=== PATIENT | female | born 1945 | race Caucasian/White ===

== ENCOUNTER 2016-10-18 15:47 | Observation (INO) | payer MEDICARE ==
[~2016-10-18] VITALS: Ht 167.6 cm; Wt 72.1 kg
[2016-10-18 15:49] VITALS: BP 221/91; PULSE 89; RESP 15; TEMP 98.1; O2SAT 99
--- NOTE | 2016-10-18 15:53 | PD ---
Physical Exam Time Seen by Provider: 15:51 Narrative 70yo F c/o chest pain radiating to neck and SOB starting 1.5hours ago. + cardiac hx. + fatigue. Patient seen in triage. VS reviewed. Patient awaiting bed placement. Data Data Last Documented VS Vital Signs Date Time Temp Pulse Resp B/P (MAP) Pulse Ox O2 Delivery O2 Flow Rate FiO2 10/18/16 15:49 98.1 89 15 221/91 (134) 99 MDM Supervised Visit with ZACK: Shirley Lee Oct 18, 2016 15:53
[2016-10-18] MEDS ORDERED: NITROGLYCERIN 2% OINT 1 GM PACKET TOP ONE (16:00)
[2016-10-18] MEDS ORDERED: ASPIRIN 81 MG CHEW TAB PO ONE (16:00)
[2016-10-18] MEDS ORDERED: SODIUM CHLORIDE 0.9% FLUSH 10 ML FLUSH IVF PRN (16:00)
[2016-10-18] MEDS ORDERED: MORPHINE SULFATE 4 MG/ML INJ IV PUSH ONE (16:00)
--- NOTE | 2016-10-18 16:07 | PD ---
HPI . Chest pain Chief Complaint: Cardiac Complaint Time Seen by Provider: 15:56 Travel History International Travel<30 days: No Contact w/Intl Traveler<30days: No Traveled to known affect area: No History of Present Illness HPI This patient presents with chief complaint of the acute onset of chest pain, shortness of breath and nausea with it about an hour and half prior to arrival. She is also complaining with a knifelike pain in her back. She has used nitroglycerin 3 with no relief. She states that she has been feeling fatigued for the last couple of days and has had a few "episodes." The patient reports a significant cardiac history. She has had numerous previous stents. She states that she has not had CABG. Symptoms are improved with nitroglycerin and morphine. CBC & BMP Diagram 10/18/16 16:15 Calcium Level 9.5, Magnesium Level 1.9 Initial cardiac enzymes are negative. This patient [facility] evaluation. PFSH Past Medical History Cardiovascular Problems: Yes Diabetes: Yes Social History Tobacco Use: No Allergies-Medications (Allergen,Severity, Reaction): Coded Allergies: Sulfa (Sulfonamide Antibiotics) (Verified Allergy, Unknown, 10/18/16) Review of Systems Except as stated in HPI: all other systems reviewed are Neg Cardiovascular: Positive: Chest Pain or Discomfort Respiratory: Positive: Shortness of Breath Gastrointestinal: Positive: Nausea Musculoskeletal: Positive: Pain (back pain) Physical Exam Narrative GENERAL: The patient is taking very deep respirations. SKIN: Warm and dry. HEAD: Atraumatic. Normocephalic. EYES: Pupils equal and round. Extraocular movements are intact. ENT: No nasal bleeding or discharge. Mucous membranes pink and moist. NECK: Trachea midline. Neck is supple. CARDIOVASCULAR: Regular rate and rhythm. Soft systolic ejection murmur. RESPIRATORY: No accessory muscle use. Lungs are clear with full air movement throughout. GASTROINTESTINAL: Abdomen soft, non-tender, nondistended. MUSCULOSKELETAL: No obvious deformities. No edema. NEUROLOGICAL: Awake and alert. No obvious cranial nerve deficits. Motor grossly within normal limits. Normal speech. PSYCHIATRIC: Appropriate mood and affect; insight and judgment normal. Data Data Last Documented VS Vital Signs Date Time Temp Pulse Resp B/P (MAP) Pulse Ox O2 Delivery O2 Flow Rate FiO2 10/18/16 16:14 100 Room Air 10/18/16 16:14 56 16 2.00 10/18/16 15:49 98.1 Orders Orders Electrocardiogram (10/18/16 15:56) Basic Metabolic Panel (Bmp) (10/18/16 15:56) Ckmb (Isoenzyme) Profile (10/18/16 15:56) Complete Blood Count With Diff (10/18/16 15:56) Magnesium (Mg) (10/18/16 15:56) Prothrombin Time / Inr (Pt) (10/18/16 15:56) Act Partial Throm Time (Ptt) (10/18/16 15:56) Troponin I (10/18/16 15:56) Chest, Single Ap (10/18/16 15:56) Ecg Monitoring (10/18/16 15:56) Iv Access Insert/Monitor (10/18/16 15:56) Oximetry (10/18/16 15:56) Aspirin Chew (Aspirin Chew) (10/18/16 16:00) Morphine Inj (Morphine Inj) (10/18/16 16:00) Nitroglycerin 2% Oint (Nitroglycerin 2% (10/18/16 16:00) Sodium Chloride 0.9% Flush (Ns Flush) (10/18/16 16:00) Labs Laboratory Tests Test 10/18/16 16:15 White Blood Count 6.7 TH/MM3 Red Blood Count 4.69 MIL/MM3 Hemoglobin 13.9 GM/DL Hematocrit 42.2 % Mean Corpuscular Volume 90.0 FL Mean Corpuscular Hemoglobin 29.7 PG Mean Corpuscular Hemoglobin Concent 33.0 % Red Cell Distribution Width 13.2 % Platelet Count 238 TH/MM3 Mean Platelet Volume 8.6 FL Neutrophils (%) (Auto) 46.5 % Lymphocytes (%) (Auto) 42.1 % Monocytes (%) (Auto) 9.4 % Eosinophils (%) (Auto) 1.6 % Basophils (%) (Auto) 0.4 % Neutrophils # (Auto) 3.1 TH/MM3 Lymphocytes # (Auto) 2.8 TH/MM3 Monocytes # (Auto) 0.6 TH/MM3 Eosinophils # (Auto) 0.1 TH/MM3 Basophils # (Auto) 0.0 TH/MM3 CBC Comment DIFF FINAL Differential Comment Prothrombin Time 10.2 SEC Prothromb Time International Ratio 0.9 RATIO Activated Partial Thromboplast Time 24.0 SEC Blood Urea Nitrogen 18 MG/DL Creatinine 1.25 MG/DL Random Glucose 109 MG/DL Calcium Level 9.5 MG/DL Magnesium Level 1.9 MG/DL Sodium Level 136 MEQ/L Potassium Level 3.8 MEQ/L Chloride Level 102 MEQ/L Carbon Dioxide Level 29.6 MEQ/L Anion Gap 4 MEQ/L Estimat Glomerular Filtration Rate 42 ML/MIN Total Creatine Kinase 95 U/L Troponin I LESS THAN 0.02 NG/ML MDM Medical Decision Making Medical Screen Exam Complete: Yes Emergency Medical Condition: Yes Medical Record Reviewed: Yes (this patient has no old records here.) Interpretation(s) EKG shows a normal sinus rhythm with no acute ST segment elevation or depression. V5 is not adequately evaluated on this EKG. Differential Diagnosis Differential diagnosis of chest pain includes but is not limited to musculoskeletal pain, pulmonary embolism, acute coronary syndrome, pneumonia, pleurisy Narrative Course This patient presents with chest pain, shortness of breath and nausea. Her pain has been unrelieved by nitroglycerin 3. Cardiac workup has been initiated. Diagnosis Primary Impression: Chest pain Qualified Codes: R07.9 - Chest pain, unspecified Admitting Information Admitting Physician Requests: Observation Condition: Stable Mariel Bond MD Oct 18, 2016 16:07
[2016-10-18 16:14] VITALS: PULSE 56; RESP 16; O2SAT 100
--- NOTE | 2016-10-18 16:22 | RADRPT ---
EXAM DATE/TIME: 10/18/2016 16:13 [facility] COMPARISON: No previous studies available for comparison. INDICATIONS : Chest pain. MEDICAL HISTORY : None. SURGICAL HISTORY : None. ENCOUNTER: Initial ACUITY: 1 day PAIN SCORE: 0/10 LOCATION: Bilateral chest FINDINGS: A single view of the chest demonstrates the lungs to be symmetrically aerated without evidence of mas s, infiltrate or effusion. The cardiomediastinal contours are unremarkable with calcification in the aortic knob.. Osseous structures are intact with anterior cervical fusion plate in place and a pin in the left humeral head suggesting prior rotator cuff tear CONCLUSION: No acute disease. Alen Merritt MD on October 18, 2016 at 16:20 Board Certified Radiologist. This report was verified electronically.
[2016-10-18 16:38] LABS: AUTOMATED NEUTROPHIL # 3.1 TH/MM3 (1.8-7.7); BASOPHIL % 0.4 % (0.0-2.0); EOSINOPHIL # 0.1 TH/MM3 (0-0.4); EOSINOPHIL % 1.6 % (0.0-4.0); HEMATOCRIT 42.2 % (35.0-46.0); HEMO FLAGS DIFF FINAL; LYMPH % 42.1 % (9.0-44.0); LYMPHOCYTE # 2.8 TH/MM3 (1.0-4.8); MEAN CORPUSCULAR HEMOGLOBIN 29.7 PG (27.0-34.0); MONO % 9.4 % (0.0-8.0); NEUT % 46.5 % (16.0-70.0); PLATELET COUNT 238 TH/MM3 (150-450); RED BLOOD COUNT 4.69 MIL/MM3 (4.00-5.30); RED CELL DISTRIBUTION WIDTH 13.2 % (11.6-17.2); WHITE BLOOD COUNT 6.7 TH/MM3 (4.0-11.0)
[2016-10-18 17:05] LABS: ANION GAP 4 MEQ/L (5-15); BICARBONATE 29.6 MEQ/L (21.0-32.0); BLOOD UREA NITROGEN 18 MG/DL (7-18); CHLORIDE 102 MEQ/L (98-107); GLOMERULAR FILTRATION RATE 42 ML/MIN (>89); MAGNESIUM 1.9 MG/DL (1.5-2.5); POTASSIUM 3.8 MEQ/L (3.5-5.1); SODIUM (NA) 136 MEQ/L (136-145)
[2016-10-18 17:10] LABS: INTERNATIONAL NORMALIZED RATIO 0.9 RATIO; PROTHROMBIN TIME - PATIENT 10.2 SEC (9.8-11.6)
[2016-10-18 17:14] LABS: CREATINE KINASE 95 U/L (26-192)
[2016-10-18] MEDS ORDERED: ONDANSETRON HCL 4 MG/2 ML VIAL IV PRN (17:45)
[2016-10-18] MEDS: NITROGLYCERIN 2% OINT 1 GM PACKET TOP SCH (18:00)
[2016-10-18 18:05] VITALS: BP 139/65; PULSE 54; RESP 16; RESP 6; O2SAT 95
[2016-10-18] MEDS ORDERED: CENTCHW4 PO (18:38)
[2016-10-18] MEDS ORDERED: CARV3.125 PO (18:38)
[2016-10-18] MEDS ORDERED: BUPR150T5 PO (18:38)
[2016-10-18] MEDS ORDERED: ASPI1TAB91 PO (18:38)
[2016-10-18] MEDS ORDERED: HUMALOG INSULIN PUMP (18:38)
[2016-10-18] MEDS ORDERED: FOLI400T PO (18:38)
[2016-10-18] MEDS ORDERED: RAMI5CAP PO (18:38)
[2016-10-18] MEDS ORDERED: PLAV75TA29 PO (18:38)
[2016-10-18] MEDS ORDERED: LIPI40TA PO (18:38)
[2016-10-18] MEDS ORDERED: NITR0.4S SL (18:38)
[2016-10-18 19:01] VITALS: BP 145/65; PULSE 53; RESP 16; O2SAT 100
[2016-10-18 20:51] LABS: CREATINE KINASE 67 U/L (26-192)
[2016-10-18 22:25] VITALS: O2SAT 100
[2016-10-18 22:44] VITALS: BP 118/57; PULSE 64; RESP 18; TEMP 97.8; O2SAT 99
[2016-10-19] VITALS (7 sets, daily range): BP systolic 116–136; BP diastolic 56–63; PULSE 57–66; RESP 16–18; TEMP 97.8–98; O2SAT 98–100
[2016-10-19] MEDS: NITROGLYCERIN 2% OINT 1 GM PACKET TOP SCH ×3 (06:00→11:13)
--- NOTE | 2016-10-19 07:42 | HHI.HP ---
HPI Primary Care Physician Thom Walker DO Chief Complaint Chest pain History of Present Illness 70-year-old female with history of coronary artery disease including x6 cardiac stents and insulin dependent type II diabetes presents to emergency room for further evaluation of chest pain. Onset yesterday afternoon while walking her dog. Location substernal. Characterized as constant pressure and intermittent stabbing sensation in the center her back. Pressure radiated to left arm and left-sided neck. Duration lasted over 12 hours. Associated symptoms included nausea and shortness of breath. No diaphoresis or vomiting. No known precipitating factors. Relieving factors-states after a chemical stress test complete chest pressure dissipated. Review of Systems General: Fatigue x3 days. No weakness, fever, chills, or recent illness. Reports she was recently seen in [facility] for chest pain and "other things." Expresses dissatisfaction regarding testing completed there. She is traveling south and therefore HEENT: Current [place]. No vision changes CV: As stated above. No current chest pain or pressure. RESP: No SOB, cough, or sputum production. GI: No nausea, vomiting, or diarrhea. No pain, no change in appetite. EXT: No lower leg edema, no paraesthesias MS: No discomfort or change in ROM NEURO: No difficulty with balance, LOC, motor/sensory deficits PSYCH: No anxiety, depression, suicidal ideation SKIN: No rashes, no concerning lesions Past Family Social History Allergies: Coded Allergies: Sulfa (Sulfonamide Antibiotics) (Verified Allergy, Unknown, 10/18/16) Past Medical History Coronary artery disease, insulin-dependent type 2 diabetic (uses an insulin pump , currently off) Past Surgical History Bilateral iliac stents and x1 right femoral stent (per her report) Reported Medications Reported Meds & Active Scripts Active Reported Folic Acid 0.4 Mg Tab 400 Mcg PO DAILY Aspirin Adult Low Strength (Aspirin) 81 Mg Tabdr 81 Mg PO DAILY Centrum (Multiple Vitamins W/ Minerals) 1 Chew 1 Tab PO DAILY Coreg (Carvedilol) 3.125 Mg Tab 3.125 Mg PO BID [Humalog Insulin Pump] CONTINUOUS Lipitor (Atorvastatin Calcium) 40 Mg Tab 40 Mg PO HS Bupropion HCl ER 12 HR (Bupropion HCl) 150 Mg Tab 150 Mg PO BID Plavix (Clopidogrel Bisulfate) 75 Mg Tab 75 Mg PO DAILY Nitrostat SL (Nitroglycerin) 0.4 Mg Subl 0.4 Mg SL DIRECTED PRN 1 tablet under the tongue as needed for chest pain. Repeat every 5 minutes for a total of 3 DOSES or call 911 if NO relief. Ramipril 5 Mg Cap 5 Mg PO DAILY Active Ordered Medications Current Medications Medications (Trade) Dose Ordered Sig/Jeannette Route Start Time Stop Time Status Last Admin (NS Flush) 2 ml UNSCH PRN IVF 10/18/16 16:00 (Zofran Inj) 4 mg Q6H PRN IV 10/18/16 17:45 (Nitroglycerin 2% Oint) 1 inch Q6HR TOP 10/18/16 18:00 10/19/16 00:00 (Aspirin) 325 mg DAILY PO 10/19/16 09:00 Social History Known coronary artery disease and diabetes. Denies any hypertension or hyperlipidemia. Appropriately on statin therapy with history of CAD. Remote smoker. Quit smoking 4 years ago. Unable to give accurate account of smoking history stating "sometimes I would smoke 1 cigarette other 1 pack daily." Denies any alcohol or illegal drug use. Recently moved from [place] one month ago. Endorses any active lifestyle. Past Cardiac Testing Reports last cardiac catheterization completed one year ago and at that time x1 stent placed. Reports x6 stents in the past. Recently moved to [facility]. New patient appointment scheduled for Dr. Slaughter Monday. Physical Exam Vital Signs Vital Signs Date Time Temp Pulse Resp B/P (MAP) Pulse Ox O2 Delivery O2 Flow Rate FiO2 10/19/16 04:00 60 10/19/16 03:56 97.8 62 18 116/56 (76) 99 10/19/16 00:00 66 10/18/16 22:44 97.8 64 18 118/57 (77) 99 10/18/16 22:39 10/18/16 22:25 100 2.50 10/18/16 19:02 100 Nasal Cannula 2.50 10/18/16 19:01 53 16 145/65 (91) 100 Nasal Cannula 2.50 10/18/16 18:05 54 16 139/65 (89) 95 Nasal Cannula 2.00 10/18/16 16:14 100 Room Air 10/18/16 16:14 56 16 100 Nasal Cannula 2.00 10/18/16 15:49 98.1 89 15 221/91 (134) 99 Physical Exam GENERAL: Alert WN, WD, NAD, elderly female CV: RRR, without murmur, rub, gallop, no JVD, S1-S2 no S3-S4. RESP: Clear lungs throughout bilateral, no crackles, wheeze, rhonchi, symmetrical chest rise, nonlabored, able to speak in full sentences ABD: Soft, NT, ND, no masses, positive bowel tones BACK: No CVAT EXT: Pulses +24, no dependent edema MS: Normal tone 4 extremities, nontender, no obvious deformities, full range of motion NEURO: CN II through CN XII grossly intact, motor strength 5/5 PSYCH: A+O 3, flat affect, appropriate speech, appropriate mood and affect, insight and judgment SKIN: Normal turgor, normal texture, no lesions, no rashes Laboratory Laboratory Tests Test 10/18/16 16:15 10/18/16 19:30 10/18/16 23:00 White Blood Count 6.7 Red Blood Count 4.69 Hemoglobin 13.9 Hematocrit 42.2 Mean Corpuscular Volume 90.0 Mean Corpuscular Hemoglobin 29.7 Mean Corpuscular Hemoglobin Concent 33.0 Red Cell Distribution Width 13.2 Platelet Count 238 Mean Platelet Volume 8.6 Neutrophils (%) (Auto) 46.5 Lymphocytes (%) (Auto) 42.1 Monocytes (%) (Auto) 9.4 Eosinophils (%) (Auto) 1.6 Basophils (%) (Auto) 0.4 Neutrophils # (Auto) 3.1 Lymphocytes # (Auto) 2.8 Monocytes # (Auto) 0.6 Eosinophils # (Auto) 0.1 Basophils # (Auto) 0.0 CBC Comment DIFF FINAL Differential Comment Prothrombin Time 10.2 Prothromb Time International Ratio 0.9 Activated Partial Thromboplast Time 24.0 Blood Urea Nitrogen 18 Creatinine 1.25 Random Glucose 109 Calcium Level 9.5 Magnesium Level 1.9 Sodium Level 136 Potassium Level 3.8 Chloride Level 102 Carbon Dioxide Level 29.6 Anion Gap 4 Estimat Glomerular Filtration Rate 42 Total Creatine Kinase 95 67 Troponin I LESS THAN 0.02 LESS THAN 0.02 0.02 Result Diagram: 10/18/16 1615 10/18/16 1615 Imaging Last Impressions Myocardial Perfusion Scan Nuc Med 10/19/16 0000 Signed Impressions: Service Date/Time: Wednesday, October 19, 2016 08:51 - CONCLUSION: Negative for stress-induced ischemia. RISK CATEGORY: Low (<1%% Annual Mortality Rate) Roland Shaffer MD FACR Chest X-Ray 10/18/16 8260 Signed Impressions: Service Date/Time: Tuesday, October 18, 2016 16:13 - CONCLUSION: No acute disease. Alen Merritt MD Course EKG Normal sinus rhythm, normal axis, no ST or T-segment changes Caprini VTE Risk Assessment Caprini VTE Risk Assessment: Mod/High Risk (score >= 2) Caprini Risk Assessment Model Point Value = 1 Point Value = 2 Point Value = 3 Point Value = 5 Age 41-60 Minor surgery BMI > 25 kg/m2 Swollen legs Varicose veins or History of unexplained or recurrent spontaneous Oral contraceptives or hormone replacement Sepsis (< 1 month) Serious lung disease, including pneumonia (< 1 month) Abnormal pulmonary function Acute myocardial infarction Congestive heart failure (< 1 month) History of inflammatory bowel disease Medical patient at bed rest Age 61-74 Arthroscopic surgery Major open surgery (> 45 min) Laparoscopic surgery (> 45 min) Malignancy Confined to bed (> 72 hours) Immobilizing plaster cast Central venous access Age >= 75 History of VTE Family history of VTE Factor V Leiden Prothrombin [id number] Lupus anticoagulant Anticardiolipin antibodies Elevated serum homocysteine Heparin-induced thrombocytopenia Other congenital or acquired thrombophilia Stroke (< 1 month) Elective arthroplasty Hip, pelvis, or leg fracture Acute spinal cord injury (< 1 month) Prophylaxis Regimen Total Risk Factor Score Risk Level Prophylaxis Regimen 0-1 Low Early ambulation 2 Moderate Order ONE of the following: *Sequential Compression Device (SCD) *Heparin 5000 units SQ BID 3-4 Higher Order ONE of the following medications: *Heparin 5000 units SQ TID *Enoxaparin/Lovenox 40 mg SQ daily (WT < 150 kg, CrCl > 30 mL/min) *Enoxaparin/Lovenox 30 mg SQ daily (WT < 150 kg, CrCl > 10-29 mL/min) *Enoxaparin/Lovenox 30 mg SQ BID (WT < 150 kg, CrCl > 30 mL/min) AND/OR *Sequential Compression Device (SCD) 5 or more Highest Order ONE of the following medications: *Heparin 5000 units SQ TID (Preferred with Epidurals) *Enoxaparin/Lovenox 40 mg SQ daily (WT < 150 kg, CrCl > 30 mL/min) *Enoxaparin/Lovenox 30 mg SQ daily (WT < 150 kg, CrCl > 10-29 mL/min) *Enoxaparin/Lovenox 30 mg SQ BID (WT < 150 kg, CrCl > 30 mL/min) AND *Sequential Compression Device (SCD) Assessment and Plan Assessment and Plan #1 Atypical chest pain-admitted to chest pain center. Ruled out with 3 sets of EKGs, cardiac enzymes, and monitored overnight. Seen and evaluated by Dr. Lan Mercedes. Proceed with chemical stress test. If unremarkable, discharged later this afternoon keeping new patient appointment with Dr. Slaughter. Patient agreeable to plan a care. #2 Diabetes-SSI medium dose coverage #3 History of coronary artery disease-continue Plavix and carvedilol Chasity Bundy Oct 19, 2016 07:42
[2016-10-19] MEDS ORDERED: ACETAMINOPHEN 500 MG CPLT PO PRN (08:30)
[2016-10-19] MEDS ORDERED: ASPIRIN 325 MG TAB PO SCH (09:00)
[2016-10-19] MEDS ORDERED: REGADENOSON INJ 0.4 MG/5 ML SYR ONE (09:20)
--- NOTE | 2016-10-19 10:40 | RADRPT ---
EXAM DATE/TIME: 10/19/2016 08:51 [facility] COMPARISON: No previous studies available for comparison. INDICATIONS : Chest pain radiating to the neck with dyspnea. Angina. DOSE: 26.7 mCi Tc99m Myoview at stress. 8.8 mCi Tc99m Myoview at rest. 0.4 mg Lexiscan STRESS SYMPTOMS: Dyspnea, abdominal pain, throat tightness and chest pain. EJECTION FRACTION: > 70% MEDICAL HISTORY : Myocardial infarction. Diabetes mellitus type 2. Deep venous thrombosis. SURGICAL HISTORY : Coronary artery stent. ENCOUNTER: Initial ACUITY: 1 day PAIN SCALE: 5/10 LOCATION: chest TECHNIQUE: The patient underwent pharmacologic stress with infusion of prescribed dose. Continuous ECG tracing was monitored during stress. Gated SPECT imaging was performed after stress and conventional SPECT i maging was performed at rest. The examination was performed on a SPECT/CT scanner, both attenuation and non-corrected datasets were reviewed. FINDINGS: DISTRIBUTION: The maximum perfused segment at stress is in the anterior lateral wall. Moderate gut activity does ob scure the inferior wall. PERFUSION STUDY: The pattern of perfusion at stress is within normal limits. Moderate gut activity does obscure the in ferior wall. GATED STUDY: There is intact wall motion and thickening without hypokinetic or dyskinetic segments. CONCLUSION: Negative for stress-induced ischemia. RISK CATEGORY: Low (<1% Annual Mortality Rate) Roland Shaffer MD FACR on October 19, 2016 at 10:37 Board Certified Radiologist. This report was verified electronically.
[2016-10-19] MEDS ORDERED: RAMIPRIL 5 MG CAP PO SCH (12:00)
[2016-10-19] MEDS ORDERED: CLOPIDOGREL 75 MG TAB PO SCH (12:00)
[2016-10-19] MEDS ORDERED: CARVEDILOL 3.125 MG TAB PO SCH (12:00)
[2016-10-19] MEDS ORDERED: buPROPion HCL 150 MG SUSTAINED RELEASE TAB PO SCH (12:00)
--- NOTE | 2016-10-19 12:35 | HHI.DCPOC ---
Discharge Care Plan Diagnosis: (1) Atypical chest pain (2) Hx of coronary artery disease (3) Type 2 diabetes mellitus Goals to Promote Your Health * To prevent worsening of your condition and complications * To maintain your health at the optimal level Directions to Meet Your Goals Take your medications as prescribed Follow your dietary instruction Follow activity as directed Keep your appointments as scheduled Take your immunizations and boosters as scheduled If your symptoms worsen call your PCP, if no PCP go to Urgent Care Center or Emergency Room Smoking is Dangerous to Your Health. Avoid second hand smoke Call the 24-hour hour crisis hotline for domestic abuse at Chasity Bundy Oct 19, 2016 12:35
[2016-10-19] MEDS ORDERED: GLUCAGON 1 MG/ML VIAL OTHER PRN (12:45)
[2016-10-19] MEDS ORDERED: DEXTROSE 50% IN WATER 50 ML VIAL(D50) IV PRN (12:45)
[2016-10-19] MEDS ORDERED: INSULIN ASPART 1,000 UNITS/10 ML VIAL SQ ONE (14:30)
[2016-10-19] MEDS ORDERED: INSULIN ASPART SUPPLEMENTAL SCALE SQ SCH (16:00)
--- NOTE | 2016-10-20 18:18 | TR ---
Date Performed: 10/19/2016 Time Performed: 09:35:48 DOCTOR: Nica Orellana DRUG LIST: CLINICAL HISTORY: REASON FOR TEST: CHEST PAIN REASON FOR ENDING: OBSERVATION: CONCLUSION: Lexiscan stress test was performed under standard four minute protocol. Radionuclid e was injected one minute prior to ending the test. No electrocardiographic abormalities were present to suggest ischemia. Nuclear imaging and interpretation are pending. COMMENTS:
--- NOTE | 2016-10-20 18:20 | EKG ---
Date Performed: 10/18/2016 Time Performed: 22:51:58 PTAGE: 70 years EKG: Sinus rhythm POSSIBLE RIGHT VENTRICULAR CONDUCTION DELAY BORDERLINE ECG Since PREVIOUS TRACING , no significant change noted PREVIOUS TRACIN10/18/2016 19.34 DOCTOR: Nica Orellana Interpretating Date/Time 10/20/2016 18:20:09
--- NOTE | 2016-10-20 18:21 | EKG ---
Date Performed: 10/18/2016 Time Performed: 19:34:38 PTAGE: 70 years EKG: SINUS BRADYCARDIA POSSIBLE RIGHT VENTRICULAR CONDUCTION DELAY BORDERLINE ECG Since PREVIOUS TRACING , no significant change noted PREVIOUS TRACIN10/18/2016 16.25 DOCTOR: Nica Orellana Interpretating Date/Time 10/20/2016 18:20:47
--- NOTE | 2016-10-20 18:22 | EKG ---
Date Performed: 10/18/2016 Time Performed: 16:25:26 PTAGE: 70 years EKG: Sinus rhythm POSSIBLE RIGHT VENTRICULAR CONDUCTION DELAY SEPTAL MYOCARDIAL INFARCTION ABNORMAL ECG NO PREVIOUS TRACING DOCTOR: Nica Orellana Interpretating Date/Time 10/20/2016 18:21:33
== END 2016-10-19 15:44 | disposition home or self-care (01) ==
LOC: NEPC 15:47 → NEDA 17:40 → NEPGCP 22:02
PROVIDERS: ADMIT Internal Medicine Interventional Cardiology; ATTEND Internal Medicine Interventional Cardiology
DX: R07.89 Other chest pain (principal); I25.10 Atherosclerotic heart disease of native coronary artery without angina pectoris; E11.9 Type 2 diabetes mellitus without complications; R06.02 Shortness of breath; M54.9 Dorsalgia, unspecified; R11.0 Nausea; Z79.4 Long term (current) use of insulin; Z95.5 Presence of coronary angioplasty implant and graft
CPT/HCPCS: 71010; 78452; 80048; 82550; 82948; 83735; 84484; 85025; 85610; 85730; 93005; 93017; 96372; 96374; 96375; 99285; A9502; G0378; J1815; J2270; J2405; J2785